=== PATIENT | female | born 2000 ===

== ENCOUNTER 2024-03-23 08:05 | Emergency (ER) | payer OTHER | END 2024-03-23 08:45 | disposition home or self-care (01) | LOC: CC.ED 08:05 → MERGE 08:05 → CC.ED 08:45 | DX: S29.012A Strain of muscle and tendon of back wall of thorax, initial encounter (principal); Z91.040 Latex allergy status; V49.40XA Driver injured in collision with unspecified motor vehicles in traffic accident, initial encounter | CPT/HCPCS: 99283 ==